=== PATIENT | female | born 1980 | race Caucasian/White ===

== ENCOUNTER 2018-03-03 05:02 | Day surgery (SDC) | payer OTHER ==
[2018-03-03] MEDS ORDERED: DOXYCYCLINE HY100 MG PO (19:10)
[2018-03-03] MEDS ORDERED: CODE1TAB37 PO (19:10)
== END 2018-03-03 22:35 | disposition home or self-care (01) ==
LOC: CIR.AMB 05:02
DX: D25.1 Intramural leiomyoma of uterus (principal); D25.0 Submucous leiomyoma of uterus; N84.0 Polyp of corpus uteri; Z30.2 Encounter for sterilization